=== PATIENT | female | born 1965 | race Two or more races ===

== ENCOUNTER 2020-07-11 22:54 | Inpatient (IN) | payer MEDICARE, MEDICAID ==
[~2020-07-11] VITALS: Ht 162.6 cm; Wt 47.6 kg
[~2020-07-11 22:54] MED LIST: GLIP10 PO; METF-960 PO; QUET100T PO; VENL-67 PO
[2020-07-12] MEDS ORDERED: SODIUM CHLORIDE 0.9% 1,000 ML IV ONE (00:30)
[2020-07-12 01:04] LABS: APPEARANCE,URINE CLEAR (CLEAR); BILIRUBIN,URINE NEGATIVE (NEGATIVE); GLUCOSE, URINE (UA) >=1000 mg/dL (NEGATIVE); KETONES,URINE NEGATIVE (NEGATIVE); LEUKOCYTE ESTERASE ,URINE NEGATIVE (NEGATIVE); NITRATE,URINE NEGATIVE (NEGATIVE); OCCULT BLOOD,URINE NEGATIVE (NEGATIVE); PH,URINE 6.5 (5.0-8.0); PROTEIN,URINE NEGATIVE (NEGATIVE); UROBILINOGEN,URINE 0.2 mg/dL (<=1.0)
[2020-07-12 01:04] LABS: BASOPHILS % (AUTO) 0.4 % (0.0-2.0); EOSINOPHILS % (AUTO) 0.7 % (1.0-6.0); HEMATOCRIT 40.3 % (36-46); HEMOGLOBIN 13.5 g/dL (12.0-16.0); LYMPHOCYTES % (AUTO) 14.2 % (22.0-44.0); MEAN CORPUSCULAR HEMOGLOBIN 29.8 pg (26.0-34.0); MEAN CORPUSCULAR HGB CONC 33.5 G/dL (31.0-37.0); MEAN CORPUSCULAR VOLUME 89 fL (80-100); MONOCYTES # (AUTO) 0.7 K/uL (0.1-1.0); MONOCYTES % (AUTO) 5.1 % (2.0-9.0); NEUTROPHILS # (AUTO) 11.3 K/uL (1.8-7.7); NEUTROPHILS % (AUTO) 79.6 % (40.0-70.0); PLATELET COUNT (AUTO) 235 K/uL (150-450); RED BLOOD CELL COUNT(AUTO) 4.53 MIL/uL (4.00-5.20)
[2020-07-12 01:10] LABS: AMPHET/METH SCREEN,URINE NEGATIVE (NEGATIVE); BARBITURATE SCREEN, URINE NEGATIVE (NEGATIVE); BENZODIAZEPINES SCREEN,URINE NEGATIVE (NEGATIVE); CANNABINOID SCREEN,URINE POSITIVE (NEGATIVE); COCAINE SCREEN,URINE NEGATIVE (NEGATIVE); METHADONE SCREEN, URINE NEGATIVE (NEGATIVE); OPIATE SCREEN,URINE NEGATIVE (NEGATIVE)
[2020-07-12 01:15] LABS: PHENCYCLIDINE SCREEN,URINE NEGATIVE (NEGATIVE)
[2020-07-12 01:29] LABS: BACTERIA,URINE Rare /HPF (None Seen); RBC,URINE 0-2 /HPF (0-2); SQUAMOUS EPITHELIAL CELL,UR Rare /LPF (None Seen); WBC,URINE 0-2 /HPF (0-5)
[2020-07-12 01:31] LABS: ACETONE,BLOOD NEGATIVE (NEGATIVE)
[2020-07-12 01:35] LABS: B-TYPE NATRIURETIC PEPTIDE 7 pg/mL (0-100)
[2020-07-12 01:37] LABS: ALANINE AMINOTRANSFERASE 302 U/L (12-78); ALBUMIN 3.7 g/dL (3.4-5.0); ALKALINE PHOSPHATASE 115 U/L (46-116); ANION GAP 11 mmol/L (8-16); ASPARTATE AMINOTRANSFERASE 789 U/L (15-37); BILIRUBIN,TOTAL 0.3 mg/dL (0.1-1.0); CALCIUM, TOTAL 9.7 mg/dL (8.8-10.5); CARBON DIOXIDE 24 mmol/L (22-29); CHLORIDE 100 mmol/L (98-107); CREATINE KINASE, TOTAL ONLY 188 U/L (26-192); CREATININE 0.81 mg/dL (0.60-1.30); GLOMERULAR FILTR. RATE CALC > 60 mL/min (>60); HCG,QUANTITATIVE 6 mIU/mL (0-6); POTASSIUM 3.7 mmol/L (3.5-5.1); SODIUM SERUM 135 mmol/L (136-145); TOTAL PROTEIN, SERUM 6.6 g/dL (6.4-8.2); UREA NITROGEN, BLOOD 7 mg/dL (7-18)
[2020-07-12 01:40] LABS: GLUCOSE,RANDOM 458 mg/dL (70-110)
[2020-07-12] MEDS ORDERED: IBUPROFEN 600 MG TABLET PO ONE (01:45)
[2020-07-12] MEDS ORDERED: KETOROLAC TROMETHAMINE 30 MG/ML VIAL IVP ONE (01:45)
[2020-07-12 01:58] LABS: GLUCOSE,POINT OF CARE 523 MG/DL (70-110)
[2020-07-12] MEDS ORDERED: HALOPERIDOL 5 MG TABLET PO PRN (02:45)
[2020-07-12 03:07] LABS: COVID AG,FIA SOURCE NASOPHARYNGEAL
[2020-07-12 04:28] LABS: GLUCOSE,POINT OF CARE 475 MG/DL (70-110)
[2020-07-12] MEDS: LORazepam 2 MG TABLET PO PRN ×2 (04:29→20:32)
[2020-07-12] MEDS ORDERED: INSULIN REGULAR, HUMAN 100 UNITS/ML SQ ONE (04:30)
[2020-07-12] MEDS ORDERED: ACETAMINOPHEN 500 MG TABLET PO ONE (04:45)
[2020-07-12 07:31] LABS: GLUCOSE,POINT OF CARE 217 MG/DL (70-110)
[2020-07-12] MEDS ORDERED: LOPERAMIDE HCL 2 MG CAPSULE PO PRN (09:45)
[2020-07-12] MEDS ORDERED: BACITRACIN 28 GM OINTMENT TP PRN (09:45)
[2020-07-12] MEDS ORDERED: MAG HYDROX/AL HYDROX/SIMETH ES 30 ML SUSPENSION UDCUP PO PRN (09:45)
[2020-07-12] MEDS ORDERED: DOCUSATE SODIUM 100 MG CAPSULE PO PRN (09:45)
[2020-07-12] MEDS ORDERED: ALBUTEROL SULFATE HFA 90 MCG/PUFF 8 GM INHALER IH PRN (09:45)
[2020-07-12] MEDS ORDERED: OMEPRAZOLE 20 MG CAPSULE PO PRN (09:45)
[2020-07-12] MEDS ORDERED: PETROLATUM,WHITE 28 GM JELLY TP PRN (09:45)
[2020-07-12] MEDS ORDERED: CloNIDine HCL 0.1 MG TABLET PO PRN (09:45)
[2020-07-12] MEDS ORDERED: BENZOCAINE/MENTHOL LOZENGE PO PRN (09:45)
[2020-07-12] MEDS ORDERED: ACETAMINOPHEN 325 MG TABLET PO PRN (09:45)
[2020-07-12] MEDS ORDERED: MAGNESIUM HYDROXIDE SUSPENSION 30 ML UDCUP PO PRN (09:45)
[2020-07-12] MEDS ORDERED: ONDANSETRON HCL 4 MG TABLET PO PRN (09:45)
[2020-07-12] MEDS: IBUPROFEN 600 MG TABLET PO PRN ×2 (10:10→18:55)
[2020-07-12 11:52] LABS: GLUCOSE,POINT OF CARE 292 MG/DL (70-110)
[2020-07-12] MEDS ORDERED: DEXTROSE 50%-WATER 25 GM/50 ML SYRINGE IVP PRN (12:00)
[2020-07-12] MEDS ORDERED: INSULIN LISPRO 100 UNITS/ML SQ PRN (12:00)
[2020-07-12] MEDS ORDERED: GLUCAGON,HUMAN RECOMBINANT 1 MG VIAL IM PRN (14:30)
[2020-07-12 15:53] LABS: GLUCOSE,POINT OF CARE 487 MG/DL (70-110)
[2020-07-12 17:16] LABS: GLUCOMETER DEV NAME(LOC) BV2X.; GLUCOSE,POINT OF CARE 419 MG/DL (70-110)
[2020-07-12] MEDS ORDERED: INSULIN LISPRO 100 UNITS/ML SQ ONE (18:30)
[2020-07-12 18:53] VITALS: BP 112/62
[2020-07-12 20:34] LABS: GLUCOMETER DEV NAME(LOC) BV2X.; GLUCOSE,POINT OF CARE 174 MG/DL (70-110)
[2020-07-12] MEDS: INSULIN LISPRO 100 UNITS/ML SQ PRN (20:51)
[2020-07-12] MEDS ORDERED: INSULIN GLARGINE,HUM.REC.ANLOG 100 UNITS/ML SQ SCH (21:00)
[2020-07-13 00:55] VITALS: BP 124/76
[2020-07-13] MEDS: ZOLPIDEM TARTRATE 10 MG TABLET PO PRN ×2 (01:03→20:45)
[2020-07-13] MEDS: GlipiZIDE 10 MG TABLET PO SCH ×2 (06:31→16:30)
[2020-07-13 06:35] LABS: GLUCOMETER DEV NAME(LOC) BV2X.; GLUCOSE,POINT OF CARE 231 MG/DL (70-110)
[2020-07-13 06:50] VITALS: BP 129/78
[2020-07-13] MEDS: MetFORMIN HCL 500 MG TABLET PO SCH ×2 (06:50→16:30)
[2020-07-13] MEDS: INSULIN LISPRO 100 UNITS/ML SQ PRN ×4 (06:52→20:40)
[2020-07-13] MEDS: IBUPROFEN 600 MG TABLET PO PRN ×2 (06:55→16:30)
[2020-07-13 08:07] VITALS: BP 117/75
[2020-07-13] MEDS: NICOTINE 14 MG/24 HOUR PATCH TD SCH (08:43)
[2020-07-13] MEDS: LORazepam 2 MG TABLET PO PRN (10:49)
[2020-07-13 12:02] LABS: GLUCOMETER DEV NAME(LOC) BV2X.; GLUCOSE,POINT OF CARE 365 MG/DL (70-110)
[2020-07-13 16:15] LABS: GLUCOMETER DEV NAME(LOC) BV2X.; GLUCOSE,POINT OF CARE 345 MG/DL (70-110)
[2020-07-13 16:28] VITALS: BP_SYST 110; BP_DIAS 7; BP_DIAS 73
[2020-07-13 16:42] VITALS: BP 110/73
[2020-07-13 20:26] LABS: GLUCOMETER DEV NAME(LOC) BV2X.; GLUCOSE,POINT OF CARE 130 MG/DL (70-110)
[2020-07-13] MEDS: QUEtiapine FUMARATE 50 MG ER TABLET PO SCH (20:30)
[2020-07-13] MEDS: INSULIN GLARGINE,HUM.REC.ANLOG 100 UNITS/ML SQ SCH (20:41)
[2020-07-14 04:54] VITALS: BP 109/75
[2020-07-14 05:54] VITALS: BP 112/79
[2020-07-14] MEDS: IBUPROFEN 600 MG TABLET PO PRN ×3 (05:57→20:10)
[2020-07-14] MEDS: MetFORMIN HCL 500 MG TABLET PO SCH ×2 (06:01→16:53)
[2020-07-14] MEDS: GlipiZIDE 10 MG TABLET PO SCH ×2 (06:01→16:52)
[2020-07-14 06:12] LABS: GLUCOMETER DEV NAME(LOC) BV2X.; GLUCOSE,POINT OF CARE 106 MG/DL (70-110)
[2020-07-14 08:13] VITALS: BP 127/67
[2020-07-14] MEDS: NICOTINE 14 MG/24 HOUR PATCH TD SCH (10:07)
[2020-07-14] MEDS: VENLAFAXINE HCL 75 MG ER CAPSULE PO SCH (10:07)
[2020-07-14] MEDS: INSULIN LISPRO 100 UNITS/ML SQ PRN (11:35)
[2020-07-14 11:43] LABS: GLUCOMETER DEV NAME(LOC) BV2X.; GLUCOSE,POINT OF CARE 194 MG/DL (70-110)
[2020-07-14 16:21] LABS: GLUCOMETER DEV NAME(LOC) BV2X.; GLUCOSE,POINT OF CARE 113 MG/DL (70-110)
[2020-07-14 19:22] VITALS: BP 122/88
[2020-07-14 20:17] LABS: GLUCOMETER DEV NAME(LOC) BV2X.; GLUCOSE,POINT OF CARE 183 MG/DL (70-110)
[2020-07-14] MEDS: QUEtiapine FUMARATE 50 MG ER TABLET PO SCH (20:33)
[2020-07-14] MEDS: INSULIN GLARGINE,HUM.REC.ANLOG 100 UNITS/ML SQ SCH (20:44)
[2020-07-14] MEDS: ZOLPIDEM TARTRATE 10 MG TABLET PO PRN (22:17)
[2020-07-15 00:05] VITALS: BP 123/61
[2020-07-15 05:26] LABS: GLUCOMETER DEV NAME(LOC) BV2X.; GLUCOSE,POINT OF CARE 69 MG/DL (70-110)
[2020-07-15] MEDS: GlipiZIDE 10 MG TABLET PO SCH (06:29)
[2020-07-15 06:31] LABS: GLUCOMETER DEV NAME(LOC) BV2X.; GLUCOSE,POINT OF CARE 144 MG/DL (70-110)
[2020-07-15] MEDS: MetFORMIN HCL 500 MG TABLET PO SCH (06:47)
[2020-07-15] MEDS: VENLAFAXINE HCL 75 MG ER CAPSULE PO SCH (09:01)
[2020-07-15] MEDS: NICOTINE 14 MG/24 HOUR PATCH TD SCH (09:01)
[2020-07-15 09:07] VITALS: BP 111/66
[2020-07-15] MEDS: IBUPROFEN 600 MG TABLET PO PRN (09:07)
[2020-07-15] MEDS ORDERED: NICO-703 TD (13:49)
[2020-07-15] MEDS: INSULIN LISPRO 100 UNITS/ML SQ PRN (14:38)
[2020-07-15 14:44] LABS: GLUCOMETER DEV NAME(LOC) BV2X.; GLUCOSE,POINT OF CARE 253 MG/DL (70-110)
== END 2020-07-15 15:45 | disposition home or self-care (01) | DRG 885 ==
LOC: EMS 22:56 → B2X 07-12 02:37
PROVIDERS: ADMIT Psychiatry & Neurology Psychiatry; ATTEND Psychiatry & Neurology Psychiatry
DX: F25.9 Schizoaffective disorder, unspecified (principal); F33.2 Major depressive disorder, recurrent severe without psychotic features; R45.851 Suicidal ideations; I10 Essential (primary) hypertension; E11.9 Type 2 diabetes mellitus without complications; G47.00 Insomnia, unspecified; F41.9 Anxiety disorder, unspecified; K59.00 Constipation, unspecified; F19.10 Other psychoactive substance abuse, uncomplicated; Z72.0 Tobacco use; Z79.899 Other long term (current) drug therapy; Z79.84 Long term (current) use of oral hypoglycemic drugs; Z03.818 Encounter for observation for suspected exposure to other biological agents ruled out
CPT/HCPCS: 87081; 87426; 93005; G0480; J1815; J7030; Q0162; 36415-L1; 36415-TC; 71045-TC; 80061-TC